=== PATIENT | female | born 1940 | race Caucasian/White ===

== ENCOUNTER 2020-09-25 09:59 | Outpatient (CLI) | payer OTHER, SELFPAY ==
--- NOTE | ~2020-09-25 | DEXA_ITS ---
Bone Density Report Name: Cheyenne Gurrola Age: 80 Sex: Female Ethnicity: White Date of : 1940 Indication: postmenopausal; hysterectomy; Referring Provider: Nestor, Panfilo George Study: Bone densitometry was performed. Exam Date: September 25, 2020 Accession number: [id number] Bone Density: Region BMD T-score Z-score Classification AP Spine (L1-L4) 1.162 1.0 3.7 Normal Femoral Neck (Left) 0.786 -0.6 1.7 Normal Total Hip (Left) 0.999 0.5 2.5 Normal Total Hip Bilateral Avg 0.985 0.4 2.4 Normal Femoral Neck (Right) 0.772 -0.7 1.6 Normal Total Hip (Right) 0.970 0.2 2.2 Normal World Health Organization criteria for BMD impression classify patients as: Normal (T-score at or above -1.0), Osteopenia (T-score between -1.0 and -2.5), or Osteoporosis (T-score at or below -2.5). 10-year Fracture Risk: FRAX not reported because: All T-scores for Spine Total, Hip Total, Femoral Neck at or above -1.0 Previous Exams: Region Exam Age BMD T-score BMD Change BMD Change Date g/cm2 vs Baseline vs Previous AP Spine(L1-L4) 09/25/2020 80 1.162 1.0 0.053(4.8%)# 0.042(3.8%)* 05/18/2017 76 1.120 0.7 0.011(1.0%)# 0.028(2.6%)# 06/28/2013 73 1.092 0.4 -0.018(-1.6%)# 0.005(0.5%) 05/13/2011 70 1.086 0.4 -0.023(-2.1%)# -0.023(-2.1%)# 08/08/2008 68 1.109 0.6 Total Hip(Left) 09/25/2020 80 0.999 0.5 0.071(7.6%)# 0.003(0.3%) 05/18/2017 76 0.995 0.4 0.067(7.3%)# 0.105(11.8%)# 06/28/2013 73 0.891 -0.4 -0.038(-4.0%)# -0.004(-0.5%) 05/13/2011 70 0.895 -0.4 -0.033(-3.6%)# -0.033(-3.6%)# 08/08/2008 68 0.928 -0.1 Total Hip(Right) 09/25/2020 80 0.970 0.2 0.060(6.6%)# -0.008(-0.8%) 05/18/2017 76 0.978 0.3 0.068(7.5%)# 0.049(5.3%)# 06/28/2013 73 0.929 -0.1 0.019(2.1%)# 0.001(0.1%) 05/13/2011 70 0.928 -0.1 0.018(1.9%)# 0.018(1.9%)# 08/08/2008 68 0.910 -0.3 *Denotes significance at 95% confidence level, LSC for AP Spine = 0.022 g/cm2, LSC for Total Hip = 0.027 g/cm2 Clinical Information Provided by Patient: Has used the following medications: HRT (i.e. estrogen/hormone therapy), Vitamin D, Calcium Has the following medical conditions: Hysterectomy Patient maximum height was 65.5 Menopause Age: 30 Onset of menses at age 13 Number of children 4 Impression: The patient has normal bone mass. No significant bone loss was observed. Discussion: BON
== END 2020-09-25 10:00 | disposition home or self-care (01) ==
LOC: ANHIMG 10:05
PROVIDERS: PCP Family Medicine; Visit Provider Family Medicine
DX: Z13.820 Encounter for screening for osteoporosis (principal); Z78.0 Asymptomatic menopausal state
CPT/HCPCS: 77080